=== PATIENT | male | born 1950 | race Caucasian/White ===

== ENCOUNTER → 2016-10-17 | Day surgery (SDC) | payer OTHER ==
[2016-10-04 12:15] VITALS: Ht 167.6 cm; Wt 75.0 kg
[~2016-10-17] VITALS: Ht 167.6 cm; Wt 75.0 kg
[~2016-10-17] MED LIST: ADVIN25/60 INH; ATROPINE SULFATE 0.1 MG/ML 5ML SYR IV PRN; BUPIVACAINE/EPINEPHRINE 0.25% 1:200,000 30 ML VIAL ONE; CEFAZOLIN 2000 MG/60 ML D5W IV SCH; DEXAMETHASONE SOD INJ 4 MG/ML VIAL IV PRN; DEXAMETHASONE SOD INJ 4 MG/ML VIAL ONE; EpHEDrine SULFATE INJ 50 MG/ML AMP IV PRN; EpINEphrine INJ 1MG/ML AMP 1 MG/ML AMP ONE; FENTANYL CITRATE INJ 50 MCG/1 ML 2 ML VIAL IV PRN; FENTANYL CITRATE INJ 50 MCG/1 ML 2 ML VIAL ONE; HYDR-5688 PO; KETO10TA PO; KETOROLAC TROMETHAMINE 30 MG/ML VIAL IV. PRN; LABETALOL HCL IV 5 MG/ML 20ML IV PRN; LACTATED RINGER'S 1000ML 1,000 ML IV SCH; LIDOCAINE HCL 1% MPF 2 ML VIAL ONE; LIDOCAINE HCL 2% 2 ML VIAL (20MG/ML) ONE; METOCLOPRAMIDE HCL INJ 5 MG/ML 2 ML VIAL IV PRN; MIDAZOLAM HCL 1 MG/ML 2ML VIAL ONE; MoRPHine SULFATE 10 MG/ML CARP/VIAL IV PRN; ONDANSETRON INJ 2 MG/ML 2 ML VIAL IV PRN; ONDANSETRON INJ 2 MG/ML 2 ML VIAL ONE; OXYC-106 PO; OXYCODONE/ACETAMINOPHEN 5-325 TAB PO PRN; PHENYLEPHRINE 100MCG/ML 5ML SYR IV PRN; PHENYLEPHRINE HCL INJ 10 MG/ML VIAL ONE; PROPOFOL IV EMULSION 10 MG/ML 20 ML VIAL IV ONE; ROPI1TAB PO; ROPIVACAINE 0.5% 5 MG/ML 30 ML VIAL ONE; SODIUM CHLORIDE 0.9% 1000ML 1,000 ML IV SCH; VNTHFA/IN INH
--- NOTE | 2016-10-17 10:58 | History & Physical Bridge - [place] ---
H&P Re-Evaluation Bridge Note: I have examined the patient, reviewed the History & Physical and in the interval since the performance of the History & Physical I have noted the following changes of clinical significance: No changes noted
--- NOTE | 2016-10-17 12:46 | Discharge Instructions-SurgCtr ---
Discharge Instructions Date of Service Oct 17, 2016. Visit Reason for Visit: Left Shoulder Full Thickness Rotator Cuff Tear Discharge Discharge Diagnosis / Problem: SAME ABOVE Discharge Goals Goal(s): Decrease discomfort, Improve function Activity Recommendations Activity Limitations: as noted below Lifting Limitations: until after follow-up appointment Exercise/Sports Limitations: until after follow-up appointment Shower/Bathe: tomorrow Driving or Machine Use: UNTIL AFTER FOLLOW-UP Anesthesia . Post Anesthesia Instructions: If you have had General Anesthesia or IV Sedation: * Do not drive today. * Resume driving when surgeon permits. * Do not make important decisions or sign legal documents today. * Call surgeon for: 1. Temperature elevations greater than 101 degrees F. 2. Uncontrollable pain. 3. Excessive bleeding. 4. Persistent nausea and vomiting. 5. Medication intolerance (nausea, vomiting or rash). * For nausea and vomiting use only clear liquids such as: tea, soda, bouillon until nausea subsides, then gradually increase diet as tolerated. * If you have any concerns or questions, call your surgeon's office. If physician is unavailable and it is an emergency, call 911 or go to the nearest emergency room. . Instructions / Follow-Up Instructions / Follow-Up MEDICATIONS: * Resume previous medications unless instructed otherwise by your surgeon. * Always take pain medication on a full stomach or with food to avoid upset stomach. * Do not drink alcohol or drive while taking narcotics. * Ibuprofen or Tylenol may be taken if narcotic not needed. SPECIAL CARE INSTRUCTIONS: __ None _X_ Keep extremity elevated and iced x 48 hours; apply ice 20-30 minutes 8-10 times/day. May remove at night. __ Sling __24 hrs/day __ Remove at night _X_ Shoulder Immobilizer (MAY REMOVE AFTER 48 HOURS ONLY TO SHOWER AND FOR THERAPY) _X_ 24 hrs/day __ Remove at night _X_ Dressing __ Maintain until seen in office, may shower with plastic over site _X_ Remove dressings in 24-48 hours and then may shower _X_ Cover incisions with band-aids after showering __ Do not remove steri-strips Call physician if chills or temperature rises above 102 degrees or pain unrelieved by prescribed pain medications at . . Diet Recommendations Home Diet: no limitations Fluid Restriction: None Procedures Procedures Performed: Left Shoulder Arthroscopy, Medium Rotator Cuff Repair, Arthroscopic Bicep Tenodesis Pending Studies Studies pending at discharge: no Work Instructions Return To Work: after follow-up Lifting Limitations: NO LIFTING WITH LEFT ARM Medical Emergencies . Who to Call and When: Medical Emergencies: If at any time you feel your situation is an emergency, please call 911 immediately. . Non-Emergent Contact Non-Emergency issues call your: Primary Care Provider Call Non-Emergent contact if: you have a fever, temperature is above 101.5 . . "Provider Documentation" section prepared by Smith Ellis. .
[2016-10-17 13:19] VITALS: TEMP 36.6
[2016-10-17 13:48] VITALS: BP 138/84; PULSE 90; O2SAT 91
--- NOTE | 2016-10-17 13:54 | Anesthesia Progress Nt - [facility] ---
Anesthesia Post Op Note Date & Time Oct 17, 2016 at 13:54 Vital Signs Pain Intensity: 0 Vital Signs Past 12 Hours Date Time Temp Pulse Resp B/P (MAP) Pulse Ox O2 Delivery O2 Flow Rate FiO2 10/17/16 13:48 90 16 138/84 (102) 91 Room Air 10/17/16 13:19 36.6 88 16 134/78 (96) 90 Room Air 10/17/16 13:11 141/71 10/17/16 13:10 36.2 96 16 141/71 92 Room Air 10/17/16 13:10 88 18 10/17/16 13:10 87 18 93 10/17/16 13:06 127/79 10/17/16 13:05 81 13 100 10/17/16 13:05 81 13 10/17/16 13:01 147/66 10/17/16 13:00 81 16 10/17/16 13:00 82 16 93 10/17/16 12:56 139/91 10/17/16 12:55 88 14 93 10/17/16 12:55 86 14 10/17/16 12:51 154/91 10/17/16 12:50 79 15 10/17/16 12:50 81 15 100 10/17/16 12:46 135/101 10/17/16 12:45 85 14 100 10/17/16 12:45 84 14 10/17/16 12:41 141/92 10/17/16 12:40 81 12 100 10/17/16 12:40 82 12 10/17/16 12:36 130/79 10/17/16 12:35 85 15 100 10/17/16 12:35 85 15 10/17/16 12:31 137/80 10/17/16 12:30 90 17 99 10/17/16 12:30 89 17 10/17/16 12:26 130/83 10/17/16 12:25 95 94 10/17/16 12:25 95 10/17/16 12:25 36.2 16 130/83 98 Mask 6 10/17/16 11:00 0 10/17/16 10:59 22 10/17/16 10:58 94 10/17/16 10:58 94 14 99 10/17/16 10:57 91 23 99 10/17/16 10:57 92 10/17/16 10:56 128/79 10/17/16 10:52 93 26 99 10/17/16 10:52 95 10/17/16 10:51 129/86 10/17/16 10:48 90 18 99 10/17/16 10:48 90 10/17/16 10:47 146/90 10/17/16 10:43 86 0 94 10/17/16 10:43 87 10/17/16 10:38 0 10/17/16 10:33 85 0 10/17/16 10:28 79 0 10/17/16 10:23 89 0 10/17/16 10:18 76 0 10/17/16 10:13 95 0 10/17/16 10:08 88 0 10/17/16 10:03 85 0 10/17/16 09:58 85 0 10/17/16 09:53 76 0 10/17/16 09:11 36.7 65 20 140/87 (104) 95 Room Air Notes Mental Status: alert / awake / arousable, participated in evaluation Pt Amnestic to Procedure: Yes Nausea / Vomiting: adequately controlled Pain: adequately controlled Airway Patency, RR, SpO2: stable & adequate BP & HR: stable & adequate Hydration State: stable & adequate Anesthetic Complications: no major complications apparent
--- NOTE | 2016-10-17 15:38 | [facility] Post Operative Brief Note ---
Immediate Operative Summary Operative Date Oct 17, 2016. Pre-Operative Diagnosis Left Shoulder Rotator Cuff Tear Post-Operative Diagnosis Same Procedure(s) Performed Left Shoulder Arthroscopy, Medium Rotator Cuff Repair, Arthroscopic Bicep Tenodesis Surgeon Dr. Perez Pole Classifier Surgeon(s) Faustino Ellis PA-C Estimated Blood Loss 5 ml Findings as above Specimens None Complication(s) None Disposition Recovery Room / PACU
--- NOTE | 2016-10-29 19:03 | OPERATIVE REPORT ---
PREOPERATIVE DIAGNOSIS: Medium-size left rotator cuff tear. POSTOPERATIVE DIAGNOSIS: Same. PROCEDURE: Left shoulder diagnostic arthroscopy with extensive debridement acromioplasty medium-sized rotator cuff repair and arthroscopic bicep tenodesis. SURGEON: Dr. Gustavo Perez. TABLE ATTENDANT: Diego Ellis PA-C whose assistance was necessary for positioning the arm and helping with instrumentation. ANESTHESIA: General with a left interscalene nerve block. COMPLICATIONS: None. CONDITION: Stable to PACU. INDICATIONS: Jenaro is a pleasant 66-year-old male who has been having a 5-year history of left shoulder pain. MRI and clinical examination were diagnostic for medium-size rotator cuff tear and biceps tendinopathy. After failing conservative treatment he elected to undergo arthroscopy. On October 17, 2016 he arrived at [facility] for the above procedure. He was seen in the preoperative holding area and the operative extremity was identified and signed. He was given a preoperative antibiotic and taken back to the operating room and laid on the table in supine position and put under general anesthesia. He was then put into the beach chair position. The left shoulder was prepped and draped in sterile fashion. A time out was done and the patient and operative extremity was properly identified. A scope was introduced in the posterior portal. Diagnostic arthroscopy showed no cartilage damage to the humeral head of the glenoid. The biceps tendon was intact but very frayed. There was no tear in the subscapularis. There was a tear of the entire supraspinatus. The infraspinatus and teres minor were intact. An anterior portal was made. A shaver was used to do a debridement of some of the intraarticular structures and the biceps tendon was arthroscopically tenotomized. The scope was then put into the subacromial space. A lateral portion was made. A shaver was used to do a complete subacromial and subdeltoid bursectomy. An ablator was used to tease the acoracocromial ligament off the undersurface of the acromion and a 5-0 bur was used to complete the acromioplasty with a very large [place] type 3 acromion. A shaver was used to remove any excess debris and attention was turned to the rotator cuff. The great tuberosity was prepared with a ring curette and a microfracture. The rotator cuff was then fixed with an Arthrex Speed Bridge configuration using 2.75 mm biocomposite swivel lock suture anchors. This gave a nice knotless Speed Bridge repair. The long head of the biceps tendon was tagged with an Arthrex Fiber Link suture and incorporated into the anterolateral anchor. This completed and arthroscopic biceps tenodesis. Multiple pictures were taken. The scope was placed back into the glenohumeral joint and the articular margin of the rotator cuff had been restored. Pictures were taken. Arthroscopic instruments were removed from the shoulder. Portal sites were closed with 2-0 Nylon. He was then placed in a soft dressing and an adduction arm sling. He was then extubated, transferred to a liter and taken to the post-anesthesia care unit in stable condition. He tolerated the procedure well.
== END | disposition home or self-care (01) ==
LOC: X.SURG 08:37
PROVIDERS: ATTEND Orthopaedic Surgery
DX: M75.102 Unspecified rotator cuff tear or rupture of left shoulder, not specified as traumatic (principal); J44.9 Chronic obstructive pulmonary disease, unspecified; Z98.890 Other specified postprocedural states; Z68.27 Body mass index [BMI] 27.0-27.9, adult; F17.200 Nicotine dependence, unspecified, uncomplicated; G25.81 Restless legs syndrome; Z99.81 Dependence on supplemental oxygen; K21.9 Gastro-esophageal reflux disease without esophagitis